=== PATIENT | female | born 1950 | race Caucasian/White ===

== ENCOUNTER 2023-03-29 18:46 | Emergency (ER) | payer MEDICARE, SELFPAY ==
[2023-03-29 18:50] VITALS: BP 143/85; PULSE 72; RESP 20; TEMP 36.7; O2SAT 95; BMI 33.5
--- NOTE | 2023-03-29 19:12 | ED.EYEPROB1 ---
HPI - Eye Problem General Chief complaint: Eye Problems Stated complaint: EYE REDNESS Time Seen by Provider: 03/29/23 19:02 Source: patient Mode of arrival: walk-in History of Present Illness HPI Narrative: The patient presented to us with a subconjunctival hemorrhage that she noted over the last few hours in her left eye there was no history of pain in the lower vision or any other complaints there was no history of trauma as well The patient just noted that subconjunctival hemorrhage while she is looking at the mirror and she denies any other complaints she also denies any constipation coughing or any strain in the last few days Related Data Allergies Allergy/AdvReac Type Severity Reaction Status Date / Time morphine AdvReac Unknown Verified 03/29/23 18:55 blood thinner AdvReac Unknown Uncoded 03/29/23 18:55 Review of Systems ROS Status of ROS 10 or more systems reviewed and unremarkable except as noted in history and below Exam Narrative Exam Narrative: Nurses notes and vital signs reviewed and patient is not hypoxic. General: Well-appearing and in no apparent distress. Skin: Warm, dry, no pallor noted. No rash. Head: Normocephalic, atraumatic. Neck: Supple, non-tender. Eye: Pupils are equal, roundright eye examination was benign left eye examination showed that the patient have a subconjunctival hemorrhage on the left lateral aspect of the conjunctiva just lateral to the cornea there was no hyphema no hypopyon no signs of trauma to the eye Ears, Nose, Mouth, and Throat: TM are clear, no nasal mucosal hypertrophy. Oral mucosa is moist, no posterior oropharynx erythema, uvula is mid-line Cardiovascular: Regular Rate and Rhythm without murmur, gallop or rub. Respiratory: No accessory muscle use or respiratory distress. Lungs are clear to auscultation, no wheezing, rales or rhonchi Chest Wall: no tenderness Back: No midline thoracic or lumbar vertebral tenderness. No CVA tenderness Musculoskeletal: normal ROM, no calf or popliteal tenderness, no lower extremity edema/swelling GI: Abdomen is soft, non-distended. Normal bowel sounds. No masses appreciated. No tenderness to palpation. No rebound, guarding, or rigidity noted. Neurological: A&O x4. No cranial nerve dysfunction observed. No truncal ataxia. Moves all extremities. Sensation intact. Psychiatric: Cooperative and interactive. Normal mood and affect. Constitutional Vital Signs, click to edit/add: Last Vital Signs Temp 98.0 F 03/29/23 18:50 Pulse 72 03/29/23 18:50 Resp 20 03/29/23 18:50 BP 143/85 H 03/29/23 18:50 Pulse Ox 95 03/29/23 18:50 O2 Del Method Room Air 03/29/23 18:50 Course Vital Signs Vital signs: Vital Signs Temperature 98.0 F 03/29/23 18:50 Pulse Rate 72 03/29/23 18:50 Respiratory Rate 20 03/29/23 18:50 Blood Pressure 143/85 H 03/29/23 18:50 Pulse Oximetry 95 03/29/23 18:50 Oxygen Delivery Method Room Air 03/29/23 18:50 Temperature 98.0 F 03/29/23 18:50 Pulse Rate 72 03/29/23 18:50 Respiratory Rate 20 03/29/23 18:50 Blood Pressure 143/85 H 03/29/23 18:50 Pulse Oximetry 95 03/29/23 18:50 Oxygen Delivery Method Room Air 03/29/23 18:50 MDM - Eye Problem MDM Narrative Medical decision making narrative: The patient does take Coumadin and her last INR was 2.5 right now the patient was instructed about monitoring her symptoms and there is no more treatment needed for subconjunctival hemorrhage at the moment but she was advised about the alarming symptoms of pain or headache or any blurry vision to bring her back to the ER The patient is to follow up with primary care physician in next 2-3 days or to return to the emergency department should any of the signs or symptoms worsen or new symptoms develop. The patient agrees with the following Diagnosis and Treatment plan and the patient will be discharged home. Discharge Plan Discharge Chief Complaint: Eye Problems Clinical Impression: Non-traumatic subconjunctival hemorrhage Patient Disposition: Home, Self-Care Time of Disposition Decision: 19:11 Condition: Good Mode of Transportation: Private Vehicle Instructions: Subconjunctival Hemorrhage (ED) Stand Alone Forms: Portal Instructions Referrals: JANAE CAMPO [Primary Care Provider] - 1 week
== END 2023-03-29 19:28 | disposition home or self-care (01) ==
PROVIDERS: Emergency Provider Emergency Medicine; PCP Internal Medicine
DX: H11.32 Conjunctival hemorrhage, left eye (principal)
CPT/HCPCS: 99281